=== PATIENT | female | born 1945 | race Caucasian/White ===

== ENCOUNTER 2018-01-31 09:44 | Observation (INO) | payer OTHER ==
[~2018-01-31] VITALS: Ht 160 cm; Wt 87.5 kg
[2018-01-31] MEDS ORDERED: NITROGLYCERIN 2% OINT 1 GM PKT TOP STA (10:20)
[2018-01-31] MEDS ORDERED: ASPIRIN 81 MG CHEW TAB PO STA (10:20)
[2018-01-31] MEDS ORDERED: SODIUM CHLORIDE FLUSH 10 ML SYR INJ PRN ×2 (10:30→12:15)
--- NOTE | 2018-01-31 11:50 | Diagnostic Imaging Report ---
Examination: Single AP view of the chest. COMPARISON: None. INDICATION: Nonradiating epigastric pain IMPRESSION: 1. Lines and Tubes: None 2. Lungs are grossly clear. No consolidation or effusion. 3. Cardiomediastinal silhouette is normal. Pulmonary vasculature is normal. 4. No acute bony abnormalities. Signed by: Dr. Harvey Ashley M.D. on 01/31/2018 11:47 AM
[2018-01-31] MEDS ORDERED: ASPIRIN 81 MG CHEW TAB PO ONE (12:15)
[2018-01-31] MEDS ORDERED: NITROGLYCERIN 0.4 MG SUBL SL PRN (12:15)
[2018-01-31 15:07] VITALS: BP 162/77
[2018-01-31 15:24] VITALS: BP 162/77
[2018-01-31] MEDS ORDERED: FLUTICASONE PRO16 GM NS (15:34)
[2018-01-31] MEDS ORDERED: ASPIR 8181 MG (15:34)
[2018-01-31] MEDS ORDERED: AMLODIPINE BESY10 MG PO (15:34)
[2018-01-31] MEDS ORDERED: AZELASTINE137 MCG/0. NS (15:34)
[2018-01-31] MEDS ORDERED: NORCO 10-325 T1 EACH PO (15:34)
[2018-01-31] MEDS ORDERED: ESTRACE42.5 GM VG (15:34)
[2018-01-31] MEDS ORDERED: HYDROCHLOROTHIA25 MG PO (15:34)
[2018-01-31] MEDS ORDERED: GABAPENTIN100 MG PO (15:34)
[2018-01-31] MEDS ORDERED: DESOXIMETASONE60 GM (15:34)
[2018-01-31] MEDS ORDERED: CENTRUM SILVER1 EAC3 (15:34)
[2018-01-31] MEDS ORDERED: BENADRYL25 M1 (15:34)
[2018-01-31] MEDS ORDERED: METOPROLOL SUCC25 MG PO (16:13)
[2018-01-31] MEDS ORDERED: FISH OIL 1,0001 EAC2 PO (16:13)
[2018-01-31] MEDS ORDERED: RANITIDINE HCL300 MG PO (16:13)
[2018-01-31] MEDS ORDERED: PRAVASTATIN SOD40 MG PO (16:13)
[2018-01-31] MEDS ORDERED: OMEPRAZOLE40 MG PO (16:13)
[2018-01-31] MEDS ORDERED: VALACYCLOVIR500 MG PO (16:13)
[2018-01-31] MEDS ORDERED: VITAMIN D1000 UNI1 PO (16:13)
[2018-01-31] MEDS ORDERED: SYMBICORT 16010.2 GM INH (16:13)
[2018-01-31 16:24] LABS: CREATINE KINASE 41 IU/L (29-168)
[2018-01-31 20:00] VITALS: BP 152/72
[2018-01-31] MEDS ORDERED: tussionex PO (21:33)
[2018-01-31] MEDS ORDERED: HYDROCODONE/CHLORPHENIRAMINE 5 ML LIQCR PO PRN (21:45)
[2018-01-31] MEDS ORDERED: HYDROCODONE/APAP 10MG-325MG TAB PO PRN (21:45)
[2018-01-31] MEDS: PANTOPRAZOLE SOD 40 MG TABEC PO SCH (22:53)
[2018-02-01 00:51] LABS: CREATINE KINASE MB 0.8 ng/mL (0-5.0)
[2018-02-01 01:03] VITALS: BP 127/59
[2018-02-01 04:00] VITALS: BP 104/56
[2018-02-01 05:52] LABS: CREATINE KINASE 48 IU/L (29-168)
[2018-02-01 07:31] LABS: CHOL/HDL RATIO 2.4 (3.0-3.6)
[2018-02-01 08:24] VITALS: BP 126/58
[2018-02-01] MEDS ORDERED: METOPROLOL SUCCINATE 25 MG TAB XL PO SCH (09:00)
[2018-02-01] MEDS ORDERED: ASPIRIN 81 MG CHEW TAB PO SCH (09:00)
[2018-02-01] MEDS ORDERED: CHOLECALCIFEROL 1,000 UNIT TAB PO SCH (09:00)
[2018-02-01] MEDS ORDERED: ASPIRIN 81 MG ENTERIC COATED PO SCH (09:00)
[2018-02-01] MEDS ORDERED: HYDROCHLOROTHIAZIDE 25 MG TAB PO SCH (09:00)
[2018-02-01] MEDS ORDERED: AMLODIPINE BESYLATE 10 MG TAB PO SCH (09:00)
[2018-02-01 09:03] VITALS: BP 126/58
[2018-02-01] MEDS: PANTOPRAZOLE SOD 40 MG TABEC PO SCH (09:03)
--- NOTE | 2018-02-01 10:01 | History and Physical ---
The patient is in observation on January 31, 2018. PRIMARY CARE PHYSICIAN: Guy Valdez MD CHIEF COMPLAINT: Epigastric pain. HISTORY OF PRESENT ILLNESS: Patient is a 72-year-old female with reflux, on multiple medications for her reflux. Apparently she stopped the medication for the past 4 days pending for endoscopy, EGD per her wheel press clerk, and then subsequently the patient had severe epigastric pain. She went to Dr. Valdez who did an EKG. There is no significant abnormality, but the patient has an appointment with a product marketing engineer in approximately 2 weeks. However, during that time, the patient continued to not take her PPI medications. She developed some burning chest pressure and chest pain on the epigastric. Therefore, she was told to go to the emergency room. Here, the EKG was significantly unremarkable. The were no ST changes, no elevation of the ST. Her cardiac enzymes have been negative times 3. Patient is otherwise stable. PAST MEDICAL HISTORY: Hypertension, reflux, allergic rhinitis. PAST SURGICAL HISTORY: Appendectomy, urinary bladder suspension, hysterectomy. SOCIAL HISTORY: Patient does not smoke or use alcohol. No recreational drugs. ALLERGIES: NSAID, SULFA, AMOXICILLIN, DICLOFENAC. HOME MEDICATIONS: List reviewed. REVIEW OF SYSTEMS: As mentioned. Completely unremarkable this morning. The patient does not have any chest pain. She did go back on her PPI medication omeprazole. PHYSICAL EXAMINATION VITAL SIGNS: Temperature is 98. Blood pressure 110/62. Pulse rate 80. Respirations 18. GENERAL: The patient is in no acute distress. HEENT: Normocephalic, atraumatic, anicteric. NECK: Supple grossly. PULMONARY: Clear. CARDIOVASCULAR: Regular rate and rhythm. ABDOMEN: Soft, unremarkable. EXTREMITIES: No cyanosis or edema. NEUROLOGIC: There is no gross focal deficit. LABORATORY: Otherwise unremarkable. IMAGING: Chest x-ray unremarkable. IMPRESSION: Epigastric discomfort, most likely reflux. Doubt this is coronary disease, but I did offer the patient to stay for a stress test. The patient does have an appointment with her product marketing engineer in approximately 1 to 2 weeks. Discussed with the patient at length. She does not want to stay, which I agree that the patient is safe to go home and follow up with her product marketing engineer. The patient will discharge home today and resume her home medications. She will need to have clearance with her product marketing engineer prior to her EGD as an outpatient. Job#: [id number] MH
--- NOTE | 2018-02-01 10:31 | Discharge Summary ---
Please review my history and physical. Patient will discharge home today. She will follow up with Dr. Valdez as an outpatient. She will follow up with her barbering instructor as planned. No further workup inpatient. The patient's chest pain has completely resolved. She did resume her PPI medication. The patient is stable and discharged home today. Job#: [id number]
[2018-02-01] MEDS ORDERED: NON-FORMULARY MEDICATION (Pravastatin Sodium 40 MG) PO SCH (21:00)
[2018-02-01] MEDS ORDERED: FAMOTIDINE 20 MG TAB PO SCH (21:00)
[2018-02-01] MEDS ORDERED: NON-FORMULARY MEDICATION (Ranitidine Hcl 300 MG) PO SCH (21:00)
[2018-02-01] MEDS ORDERED: SIMVASTATIN 40 MG TAB PO SCH (21:00)
== END 2018-02-01 10:12 | disposition home or self-care (01) ==
LOC: FSED 09:44 → ERHOLD 12:11 → IMCU 14:39
PROVIDERS: ADMIT Internal Medicine; ATTEND Internal Medicine
DX: R10.13 Epigastric pain (principal); R07.2 Precordial pain; I10 Essential (primary) hypertension; K21.9 Gastro-esophageal reflux disease without esophagitis; J30.9 Allergic rhinitis, unspecified; Z88.1 Allergy status to other antibiotic agents; Z88.2 Allergy status to sulfonamides; Z88.8 Allergy status to other drugs, medicaments and biological substances
CPT/HCPCS: 36415; 71045; 80053; 80061; 82550 ×2; 82553 ×2; 84484 ×2; 85025; 93005; 99284; G0378 ×2; S0164 ×2

== ENCOUNTER 2020-11-15 11:25 | Emergency (ER) | payer MEDICARE, OTHER ==
[~2020-11-15] VITALS: Ht 160 cm; Wt 87.5 kg
[~2020-11-15 11:25] MED LIST: AMLODIPINE BESY10 MG PO; ASPIR 8181 MG; AZELASTINE137 MCG/0. NS; BENADRYL25 M1; CENTRUM SILVER1 EAC3; DESOXIMETASONE60 GM; ESTRACE42.5 GM VG; FISH OIL 1,0001 EAC2 PO; FLUTICASONE PRO16 GM NS; GABAPENTIN100 MG PO; HYDROCHLOROTHIA25 MG PO; METOPROLOL SUCC25 MG PO; NORCO 10-325 T1 EACH PO; OMEPRAZOLE40 MG PO; PRAVASTATIN SOD40 MG PO; RANITIDINE HCL300 MG PO; SYMBICORT 16010.2 GM INH; VALACYCLOVIR500 MG PO; VITAMIN D1000 UNI1 PO; tussionex PO
[2020-11-15 15:01] LABS: BASOPHILS # (AUTO) 0.1 (0.0-0.1); BASOPHILS % 0.9 % (0.0-1.0); EOSINOPHILS # (AUTO) 0.4 (0.0-0.4); EOSINOPHILS % 6.6 % (0.0-6.0); HEMATOCRIT 39.6 % (34.2-44.1); HEMOGLOBIN 13.1 g/dL (12.0-16.0); LYMPHOCYTES # (AUTO) 2.7 (1.0-3.2); LYMPHOCYTES % 42.5 % (18.0-39.1); MEAN CORPUSCULAR HEMOGLOBIN 32.7 pg (28-32); MEAN CORPUSCULAR HGB CONC 33.1 g/dL (31-35); MEAN CORPUSCULAR VOLUME 98.8 fL (81-99); MONOCYTES # (AUTO) 0.6 (0.2-0.8); MONOCYTES % 10.1 % (4.4-11.3); NEUTROPHILS # (AUTO) 2.5 (2.1-6.9); NEUTROPHILS % 39.4 % (38.7-80.0); PLATELET COUNT 265 x10e3/uL (140-360); RED BLOOD COUNT 4.01 x10e6/uL (3.6-5.1); RED CELL DISTRIBUTION WIDTH 13.4 % (11.7-14.4)
[2020-11-15 15:04] LABS: CLARITY,URINE CLEAR (CLEAR); COLOR,URINE YELLOW (YELLOW); KETONES,URINE NEGATIVE (NEGATIVE); LEUKOCYTE ESTERASE ,URINE NEGATIVE (NEGATIVE); NITRITE,URINE NEGATIVE (NEGATIVE); PROTEIN,URINE DIPSTICK NEGATIVE (NEGATIVE); URINE UROBILINOGEN 0.2 mg/dL (0.2 - 1)
[2020-11-15 15:17] LABS: BACTERIA,URINE MODERATE /HPF; EPITHELIAL CELLS,URINE MANY /LPF
[2020-11-15 15:20] LABS: ALANINE AMINOTRANSFERASE 17 IU/L (0-55); ALBUMIN 4.2 g/dL (3.5-5.0); ALBUMIN/GLOBULIN RATIO 1.4 (0.8-2.0); ALKALINE PHOSPHATASE 78 IU/L (40-150); ANION GAP 12.4 mmol/L (8-16); BLOOD UREA NITROGEN 17 mg/dL (7-26); BUN/CREATININE RATIO 22 (6-25); CALCIUM 9.4 mg/dL (8.4-10.2); CARBON DIOXIDE 29 mmol/L (22-29); CHLORIDE 104 mmol/L (98-107); CREATININE, SERUM 0.76 mg/dL (0.57-1.11); EST GLOMERULAR FILTRATION RATE > 60 ML/MIN (60-); GLUCOSE 103 mg/dL (74-118); POTASSIUM 3.4 mmol/L (3.5-5.1); SODIUM 142 mmol/L (136-145)
== END 2020-11-15 17:00 | disposition home or self-care (01) ==
LOC: ER 12:05
DX: R50.9 Fever, unspecified (principal); K21.9 Gastro-esophageal reflux disease without esophagitis; I10 Essential (primary) hypertension; E78.5 Hyperlipidemia, unspecified; M54.9 Dorsalgia, unspecified; G89.29 Other chronic pain; Z20.822 Contact with and (suspected) exposure to COVID-19
CPT/HCPCS: 36415; 71045; 80053; 81001; 85025; 87400; 99284; U0002

== ENCOUNTER 2020-12-18 18:29 | Inpatient (IN) | payer MEDICARE ==
[~2020-12-18] VITALS: Ht 160 cm; Wt 90.3 kg
[2020-12-18] MEDS ORDERED: FAMOTIDINE20 MG PO (19:18)
[2020-12-18] MEDS ORDERED: ZYRTEC10 M3 (19:18)
[2020-12-18] MEDS ORDERED: MELATONIN3 MG PO (19:18)
[2020-12-18] MEDS ORDERED: COQ-10100 MG (19:18)
[2020-12-18] MEDS ORDERED: LASIX20 MG PO (19:18)
[2020-12-18] MEDS ORDERED: CEPHALEXIN250 MG PO (19:18)
[2020-12-18] MEDS ORDERED: TYLENOL325 M2 (19:18)
[2020-12-18] MEDS ORDERED: ADVAIR 250-501 EACH INH (19:18)
[2020-12-18] MEDS ORDERED: MUCINEX600 MG PO (19:18)
[2020-12-18] MEDS ORDERED: STOOL SOFTENER1 EAC2 (19:18)
[2020-12-18] MEDS ORDERED: ACETAMINOPHEN 325 MG TAB PO ONE (19:30)
[2020-12-18] MEDS ORDERED: ACETAMINOPHEN 325 MG TAB ONE (19:54)
[2020-12-18] MEDS ORDERED: SODIUM CHLORIDE 0.9% 1000ML 1,000 ML IV SCH (21:00)
[2020-12-18] MEDS ORDERED: SODIUM CHLORIDE 0.9% 500ML 500 ML ONE ×2 (21:11→23:02)
[2020-12-18 22:35] LABS: CREATINE KINASE MB 1.3 ng/mL (0-5.0)
[2020-12-18] MEDS ORDERED: SODIUM CHLORIDE FLUSH 10 ML SYR INJ PRN (22:45)
[2020-12-18] MEDS ORDERED: AZITHROMYCIN 500MG/SOD CHL 0.9% 250ML BAG IV SCH (22:45)
[2020-12-18] MEDS ORDERED: AZITHROMYCIN 500MG/NS 250 ML 250 ML IV SCH (22:45)
[2020-12-18] MEDS: CEFTRIAXONE 1 GM in SODIUM CHLORIDE 0.9% 50ML 50 ML IV SCH (22:59)
[2020-12-18] MEDS ORDERED: CEFTRIAXONE 1 GM VIAL ONE (23:02)
[2020-12-19] VITALS (9 sets, daily range): BP systolic 128–157; BP diastolic 53–71
[2020-12-19] MEDS ORDERED: HYDROCODONE/APAP 10MG-325MG TAB PO PRN (01:15)
[2020-12-19] MEDS: MELATONIN 5 MG TABLET PO SCH ×2 (01:30→20:38)
[2020-12-19] MEDS: DIPHENHYDRAMINE HCL 25 MG CAP PO PRN ×2 (01:30→23:06)
[2020-12-19] MEDS ORDERED: CEFTRIAXONE 1 GM in SODIUM CHLORIDE 0.9% 50ML 50 ML IV SCH (09:00)
[2020-12-19 09:20] LABS: BASOPHILS % 0.3 % (0.0-1.0); EOSINOPHILS % 0.3 % (0.0-6.0); HEMOGLOBIN 11.2 g/dL (12.0-16.0); LYMPHOCYTES % 12.4 % (18.0-39.1); MEAN CORPUSCULAR HEMOGLOBIN 32.3 pg (28-32); MEAN CORPUSCULAR HGB CONC 32.9 g/dL (31-35); MONOCYTES # (AUTO) 0.8 (0.2-0.8); MONOCYTES % 10.7 % (4.4-11.3); NEUTROPHILS # (AUTO) 5.9 (2.1-6.9); NEUTROPHILS % 75.8 % (38.7-80.0); PLATELET COUNT 183 x10e3/uL (140-360); RED BLOOD COUNT 3.47 x10e6/uL (3.6-5.1); RED CELL DISTRIBUTION WIDTH 13.2 % (11.7-14.4)
[2020-12-19 09:41] LABS: ALBUMIN 3.2 g/dL (3.5-5.0); ANION GAP 12.1 mmol/L (8-16); CALCIUM 8.6 mg/dL (8.4-10.2); CREATININE, SERUM 0.65 mg/dL (0.57-1.11); POTASSIUM 3.1 mmol/L (3.5-5.1)
[2020-12-19] MEDS: GUAIFENESIN 600 MG TAB PO SCH ×4 (09:45→20:38)
[2020-12-19] MEDS: ACETAMINOPHEN 325 MG TAB PO PRN ×2 (11:36→20:21)
[2020-12-19] MEDS ORDERED: POTASSIUM CHLORIDE 10MEQ EA PO NR (13:45)
[2020-12-19] MEDS ORDERED: GABAPENTIN 100 MG CAP PO PRN (14:45)
[2020-12-19] MEDS: ENOXAPARIN SOD INJ 40 MG/0.4 ML SYR SC SCH (17:00)
[2020-12-19] MEDS: AZELASTINE HCL 137 MCG NASAL SPRAY NS SCH (17:00)
[2020-12-19] MEDS: BUDESONIDE/FORMOTEROL 160/4.5MCG INHALER INH SCH (19:30)
[2020-12-19] MEDS: PRAVASTATIN 20 MG TAB PO SCH (20:38)
[2020-12-19] MEDS: SENNA-S TABLET PO SCH (20:38)
[2020-12-19] MEDS: CEFTRIAXONE 1 GM in SODIUM CHLORIDE 0.9% 50ML 50 ML IV SCH (23:56)
[2020-12-20] VITALS (8 sets, daily range): BP systolic 125–176; BP diastolic 42–83
[2020-12-20] MEDS: GUAIFENESIN 600 MG TAB PO SCH ×6 (02:00→22:29)
[2020-12-20] MEDS: BUDESONIDE/FORMOTEROL 160/4.5MCG INHALER INH SCH ×2 (07:32→19:30)
[2020-12-20] MEDS: FLUTICASONE PROPIONATE NASAL SPRAY NS SCH (09:10)
[2020-12-20] MEDS: LORATADINE 10 MG TAB PO SCH (09:10)
[2020-12-20] MEDS: ASPIRIN 81 MG CHEW TAB PO SCH (09:10)
[2020-12-20] MEDS: AZELASTINE HCL 137 MCG NASAL SPRAY NS SCH ×2 (09:10→16:18)
[2020-12-20] MEDS: FAMOTIDINE 20 MG TAB PO SCH (09:11)
[2020-12-20] MEDS: AMLODIPINE BESYLATE 10 MG TAB PO SCH (09:11)
[2020-12-20] MEDS: METOPROLOL SUCCINATE 25 MG TAB XL PO SCH (09:12)
[2020-12-20] MEDS: CHOLECALCIFEROL 1,000 UNIT TAB PO SCH (09:12)
[2020-12-20] MEDS: LACTOBACILLUS ACIDOPHILUS CAPSULE PO SCH ×2 (15:07→22:28)
[2020-12-20] MEDS ORDERED: HYDRALAZINE HCL 20 MG/ML VIAL IV PRN (15:15)
[2020-12-20] MEDS: ENOXAPARIN SOD INJ 40 MG/0.4 ML SYR SC SCH (16:18)
[2020-12-20] MEDS: ACETAMINOPHEN 325 MG TAB PO PRN (16:19)
[2020-12-20] MEDS: MELATONIN 5 MG TABLET PO SCH (22:28)
[2020-12-20] MEDS: SENNA-S TABLET PO SCH (22:28)
[2020-12-20] MEDS: PRAVASTATIN 20 MG TAB PO SCH (22:29)
[2020-12-20] MEDS: CEFTRIAXONE 1 GM in SODIUM CHLORIDE 0.9% 50ML 50 ML IV SCH (22:32)
[2020-12-20] MEDS: DIPHENHYDRAMINE HCL 25 MG CAP PO PRN (22:37)
[2020-12-21] VITALS (8 sets, daily range): BP systolic 127–141; BP diastolic 58–78
[2020-12-21] MEDS: GUAIFENESIN 600 MG TAB PO SCH ×6 (02:39→22:30)
[2020-12-21 05:03] LABS: BASOPHILS % 0.5 % (0.0-1.0); EOSINOPHILS # (AUTO) 0.1 (0.0-0.4); EOSINOPHILS % 2.6 % (0.0-6.0); HEMATOCRIT 35.5 % (34.2-44.1); HEMOGLOBIN 11.9 g/dL (12.0-16.0); MEAN CORPUSCULAR HEMOGLOBIN 32.5 pg (28-32); MEAN CORPUSCULAR HGB CONC 33.5 g/dL (31-35); MONOCYTES # (AUTO) 0.6 (0.2-0.8); MONOCYTES % 14.6 % (4.4-11.3); NEUTROPHILS # (AUTO) 2.5 (2.1-6.9); NEUTROPHILS % 58.8 % (38.7-80.0); PLATELET COUNT 182 x10e3/uL (140-360); RED BLOOD COUNT 3.66 x10e6/uL (3.6-5.1)
[2020-12-21 05:22] LABS: ANION GAP 9.1 mmol/L (8-16); CREATININE, SERUM 0.67 mg/dL (0.57-1.11); POTASSIUM 3.1 mmol/L (3.5-5.1)
[2020-12-21] MEDS: BUDESONIDE/FORMOTEROL 160/4.5MCG INHALER INH SCH ×2 (07:08→19:30)
[2020-12-21] MEDS: FLUTICASONE PROPIONATE NASAL SPRAY NS SCH (09:09)
[2020-12-21] MEDS: AZELASTINE HCL 137 MCG NASAL SPRAY NS SCH ×2 (09:09→18:33)
[2020-12-21] MEDS: ASPIRIN 81 MG CHEW TAB PO SCH (09:10)
[2020-12-21] MEDS: LORATADINE 10 MG TAB PO SCH (09:10)
[2020-12-21] MEDS: AMLODIPINE BESYLATE 10 MG TAB PO SCH (09:10)
[2020-12-21] MEDS: LACTOBACILLUS ACIDOPHILUS CAPSULE PO SCH ×3 (09:11→21:17)
[2020-12-21] MEDS: CHOLECALCIFEROL 1,000 UNIT TAB PO SCH (09:11)
[2020-12-21] MEDS: FAMOTIDINE 20 MG TAB PO SCH (09:11)
[2020-12-21] MEDS: METOPROLOL SUCCINATE 25 MG TAB XL PO SCH (09:11)
[2020-12-21] MEDS ORDERED: POTASSIUM CHLORIDE 20 MEQ TAB CR PO NR (09:30)
[2020-12-21] MEDS ORDERED: LOPERAMIDE HCL 2 MG CAP PO NR (09:30)
[2020-12-21] MEDS: ENOXAPARIN SOD INJ 40 MG/0.4 ML SYR SC SCH (18:33)
[2020-12-21] MEDS: PRAVASTATIN 20 MG TAB PO SCH (21:17)
[2020-12-21] MEDS: MELATONIN 5 MG TABLET PO SCH (21:17)
[2020-12-21] MEDS: CEFTRIAXONE 1 GM in SODIUM CHLORIDE 0.9% 50ML 50 ML IV SCH (22:30)
[2020-12-22 00:15] VITALS: BP 113/57
[2020-12-22] MEDS: GUAIFENESIN 600 MG TAB PO SCH ×4 (02:00→14:00)
[2020-12-22 05:10] VITALS: BP 151/75
[2020-12-22 06:12] LABS: ANION GAP 11.4 mmol/L (8-16); CREATININE, SERUM 0.68 mg/dL (0.57-1.11); POTASSIUM 3.4 mmol/L (3.5-5.1)
[2020-12-22] MEDS: BUDESONIDE/FORMOTEROL 160/4.5MCG INHALER INH SCH (07:00)
[2020-12-22 07:52] VITALS: BP 153/72
[2020-12-22 08:35] VITALS: BP 153/72
[2020-12-22] MEDS: LORATADINE 10 MG TAB PO SCH (09:00)
[2020-12-22] MEDS: LACTOBACILLUS ACIDOPHILUS CAPSULE PO SCH (09:00)
[2020-12-22] MEDS: ASPIRIN 81 MG CHEW TAB PO SCH (09:00)
[2020-12-22] MEDS: METOPROLOL SUCCINATE 25 MG TAB XL PO SCH (09:00)
[2020-12-22] MEDS: FLUTICASONE PROPIONATE NASAL SPRAY NS SCH (09:00)
[2020-12-22] MEDS: FAMOTIDINE 20 MG TAB PO SCH (09:00)
[2020-12-22] MEDS: AZELASTINE HCL 137 MCG NASAL SPRAY NS SCH (09:00)
[2020-12-22] MEDS: CHOLECALCIFEROL 1,000 UNIT TAB PO SCH (09:00)
[2020-12-22] MEDS: AMLODIPINE BESYLATE 10 MG TAB PO SCH (09:00)
[2020-12-22 11:19] VITALS: BP 139/70
[2020-12-22] MEDS ORDERED: DOXYCYCLINE HY100 MG PO (13:55)
[2020-12-22] MEDS ORDERED: POTASSIUM BICARBONATE/CIT AC 20 MEQ TABLET.EFF PO ONE (14:15)
[2020-12-22 15:18] VITALS: BP 149/59
== END 2020-12-22 15:30 | disposition home or self-care (01) | DRG 193 ==
LOC: FSED 19:18 → ERHOLD 22:43 → MED/SURG2 12-19 00:43
PROVIDERS: ADMIT Internal Medicine; ATTEND Internal Medicine
DX: J18.9 Pneumonia, unspecified organism (principal); G93.41 Metabolic encephalopathy; J44.0 Chronic obstructive pulmonary disease with (acute) lower respiratory infection; I10 Essential (primary) hypertension; E87.6 Hypokalemia; G89.29 Other chronic pain; G47.33 Obstructive sleep apnea (adult) (pediatric); K21.9 Gastro-esophageal reflux disease without esophagitis; M25.552 Pain in left hip; Z86.73 Personal history of transient ischemic attack (TIA), and cerebral infarction without residual deficits; Z20.822 Contact with and (suspected) exposure to COVID-19; E78.00 Pure hypercholesterolemia, unspecified; G47.30 Sleep apnea, unspecified; M54.5 Low back pain
CPT/HCPCS: 36415; 70450; 71046; 80048; 80053; 81003; 82550; 82553; 83605; 83735; 83880; 84484; 85025; 85379; 87040; 87493; 93005; 93971; 94660; 94664; 99251; 99284; J0360; J0456; J0696; J1650; J7040; J7050; U0002

== ENCOUNTER 2021-10-31 07:33 | Emergency (ER) | payer MEDICARE, OTHER ==
[~2021-10-31] VITALS: Ht 162.6 cm; Wt 89.8 kg
[~2021-10-31 07:33] MED LIST changes: +ADVAIR 250-501 EACH INH; +CEPHALEXIN250 MG PO; +COQ-10100 MG; +DOXYCYCLINE HY100 MG PO; +FAMOTIDINE20 MG PO; +LASIX20 MG PO; +MELATONIN3 MG PO; +MUCINEX600 MG PO; +STOOL SOFTENER1 EAC2; +TYLENOL325 M2; +ZYRTEC10 M3
[2021-10-31] MEDS ORDERED: PREDNISONE20 MG PO ×2 (09:57→10:01)
[2021-10-31] MEDS ORDERED: ONDANSETRON HCL 4 MG ORAL DISINTEGRATING TAB PO ONE (10:00)
[2021-10-31] MEDS ORDERED: ONDANSETRON ODT4 MG PO (10:01)
== END 2021-10-31 10:20 | disposition home or self-care (01) ==
LOC: FSED 07:48
DX: S00.83XA Contusion of other part of head, initial encounter (principal); M54.2 Cervicalgia; S39.012A Strain of muscle, fascia and tendon of lower back, initial encounter; W01.0XXA Fall on same level from slipping, tripping and stumbling without subsequent striking against object, initial encounter; Y93.01 Activity, walking, marching and hiking; Y92.000 Kitchen of unspecified non-institutional (private) residence as the place of occurrence of the external cause; I10 Essential (primary) hypertension; E78.5 Hyperlipidemia, unspecified; J44.9 Chronic obstructive pulmonary disease, unspecified; I50.9 Heart failure, unspecified; K21.9 Gastro-esophageal reflux disease without esophagitis; G89.29 Other chronic pain
CPT/HCPCS: 70450; 72125; 72131; 99283; Q0162

== ENCOUNTER 2024-09-05 20:25 | Emergency (ER) | payer MEDICARE ==
[~2024-09-05] VITALS: Ht 157.5 cm; Wt 97.5 kg
[~2024-09-05 20:25] MED LIST changes: +ONDANSETRON ODT4 MG PO; +PREDNISONE20 MG PO
[2024-09-05 21:45] VITALS: PULSE 59; RESP 20; TEMP 98.2
[2024-09-05] MEDS ORDERED: TIZANIDINE HCL2 MG PO (22:22)
[2024-09-05] MEDS: KETOROLAC TROMETHAMINE 60 MG/2 ML VIAL IM ONE (22:23)
[2024-09-05 22:32] VITALS: BP 193/84; O2SAT 95
== END 2024-09-05 22:35 | disposition home or self-care (01) ==
LOC: FSED 21:22
DX: S39.012A Strain of muscle, fascia and tendon of lower back, initial encounter (principal); M62.830 Muscle spasm of back; Y93.01 Activity, walking, marching and hiking; I10 Essential (primary) hypertension; E78.5 Hyperlipidemia, unspecified; G89.29 Other chronic pain
CPT/HCPCS: 99283; J1885